=== PATIENT | female | born 1990 | race Two or more races ===

== ENCOUNTER 2025-04-15 22:31 | Emergency (ER) | payer MEDICAID, OTHER ==
[~2025-04-15] VITALS: Ht 154.9 cm; Wt 62.5 kg
[2025-04-15] MEDS ORDERED: AUG875T PO (23:32)
[2025-04-15] MEDS ORDERED: IBUP-1456 PO (23:32)
--- NOTE | 2025-04-15 23:34 | ED.PDOC ---
Eye-HPI HPI Comments 34-YEAR-OLD FEMALE PRESENTS TO THE ED WITH DENTAL PAIN.. PATIENT STATES SHE HAS NOT A CRACKED TOOTH BOTTOM LEFT MOLAR. HAS NOT APPOINTMENT WITH THE DENTIST IN 1 MONTH. SHE NOTES PAIN 10/10 THROBBING IN NATURE. DENIES FEVER, CHILLS, NAUSEA, VOMITING, DIFFICULTY BREATHING, OR DIFFICULTY SWALLOWING. 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: No Pertinent MANAGER MATERIALS MANAGEMENT History Social History Smoker: Non-Smoker Alcohol: Denies ETOH Use Drugs: Denies Drug Use Constitutional: denies: chills, diaphoresis, fatigue, fever, malaise, sweats, weakness, others EENTM: reports: others (DENTAL PAIN ); denies: blurred vision, double vision, ear bleeding, ear discharge, ear drainage, ear pain, ear ringing, eye pain, eye redness, hearing loss, mouth pain, mouth swelling, nasal discharge, nose bleeding, nose congestion, nose pain, photophobia, tearing, throat pain, throat swelling, voice changes Respiratory: denies: cough, hemoptysis, orthopnea, SOB at rest, shortness of breath, SOB with excertion, stridor, wheezing, others Cardiovascular: denies: chest pain, dizzy spells, diaphoresis, Dyspnea on exertion, edema, irregular heart beat, left arm pain, lightheadedness, palpitations, PND, syncope, others Gastrointestinal: denies: abdomen distended, abdominal pain, blood streaked bowels, constipated, diarrhea, dysphagia, difficulty swallowing, hematemesis, me katelynn, nausea, poor appetite, poor fluid intake, rectal bleeding, rectal pain, vomiting, others Genitourinary: denies: abnormal vagina bleeding, burning, dyspareunia, dysuria, flank pain, frequency, hematuria, incontinence, pain, , vagina discharge, urgency, others Neurological: denies: dizziness, fainting, headache, left sided numbness, left sided weakness, numbness, paresthesia, pre-existing deficit, right sided numbness, right sided weakness, seizure, speech problems, tingling, tremors, weakness, others Musculoskeletal: denies: back pain, gout, joint pain, joint swelling, muscle pain, muscle stiffness, neck pain, others Integumetry: denies: bruises, change in color, change in hair/nails, dryness, laceration, lesions, lumps, rash, wounds, others Allergic/Immunocompromised: denies: Difficulty Healing, Frequent Infections, Hives, Itching, others Hematologic/Lymphatic: denies: anemia, blood clots, easy bleeding, easy bruising, swollen glands, others Endocrine: denies: excessive hunger, excessive sweating, excessive thirst, excessive urination, flushing, intolerance to cold, intolerance to heat, unexplained weight gain, unexplained weight loss, others Psychiatric: denies: anxiety, bipolar disorder, depression, hopeless, panic disorder, schizophrenia, sleepless, suicidal, others Physical Exam General Appearance: No Apparent Distress, Normal HEENT: Pharynx Normal, TMs Normal Neck: Full Range of Motion, Non-Tender Respiratory: Lungs Clear, No Respiratory Distress, Normal Breath Sounds Cardiovascular: No Murmur, Normal Peripheral Pulses, Regular Rate/Rhythm Breast Exam: Deferred Gastrointestinal: Non Tender, Soft Genitalia: Deferred Pelvic: Deferred Rectal: Deferred Extremities: Normal range of motion Musculoskeletal : Apperance: Normal Neurologic: Alert, recorder helper seismograph II-XII nml as Tested, No Motor Deficits, Normal Affect, Normal Mood, No Sensory Deficits Cerebellar Function: Normal Reflexes: Normal Skin: Dry, Normal Color, Warm Lymphatic: No Adenopathy Was a procedure done? Was a procedure done?: No EENT DIFF Eye: N/A Sore Throat: Aamir's Angina X-Ray, Labs, Meds, VS Comment PATIENT GIVEN ROCEPHIN 1 G AND TORADOL 60 MG AND NORCO 5 MG P.O. PATIENT HAS NOT APPOINTMENT IN 1 MONTH ADVISED HER TO CALL IN SEE IF SHE CAN GET A SOONER FOLLOW UP. SCRIPT TRIAL OF AUGMENTIN AND IBUPROFEN. TAKE MEDICATIONS PRESCRIBED SIDE EFFECTS DISCUSSED. ER RETURN PRECAUTIONS GIVEN PATIENT INDICATED UNDERSTANDING AGREES WITH DISCHARGE PLAN OF CARE. Time of 1ST Reevaluation: 23:22 Reevaluation 1ST: Unchanged Time of 2ND Reevaluation: 23:33 Reevaluation 2ND: Improved Patient Education/Counseling: Diagnosis, Treatment, Prognosis, Need For Follow Up Family Education/Counseling: Diagnosis, Treatment, Prognosis, Need For Follow Up Departure 1 Departure Time of Disposition: 23:25 Impression: Primary Impression: Dental infection Disposition: HOME / SELF CARE / HOMELESS Condition: Stable e-Prescriptions Ibuprofen (Ibuprofen) 800 Mg Tab 800 MG PO Q8HP PRN for 5 Days, #15 TAB Prov: PRIMO DAVIDSON 04/15/25 Amoxicillin & Pot Clavulanate (AUGMENTIN TABLET) 875 Mg Tb 875 MG PO BID for 7 Days, #14 TAB 6 Refills Prov: PRIMO DAVIDSON 04/15/25 Discharged With: Relative (Mother) Critical Care Note Critical Care Time?: No Stability Stability form required: No PRIMO DAVIDSON Apr 15, 2025 23:34
[2025-04-15 23:40] VITALS: BP 124/82; PULSE 91; RESP 16; TEMP 97.5; O2SAT 97
[2025-04-15] MEDS: KETOROLAC TROMETH 60MG/2ML VIAL IM ONE (23:48)
[2025-04-15] MEDS: HYDROcodone-ACET 5/325MG TAB PO ONE (23:48)
[2025-04-15] MEDS: cefTRIAXone SOD 1,000 MG VL IM ONE (23:48)
== END 2025-04-15 23:57 | disposition home or self-care (01) ==
LOC: ER 22:31
DX: K04.7 Periapical abscess without sinus (principal)

== ENCOUNTER 2025-04-22 21:08 | Emergency (ER) | payer MEDICAID ==
[~2025-04-22] VITALS: Ht 154.9 cm; Wt 64.2 kg
[~2025-04-22 21:08] MED LIST: AUG875T PO
[2025-04-22 21:25] VITALS: BP 131/97; RESP 16; TEMP 98.1; O2SAT 100
[2025-04-22 21:27] VITALS: PULSE 85
[2025-04-22] MEDS ORDERED: BENZOCAINE (DENTAL) 20 % SPRAY 60ML MT ONE (21:30)
[2025-04-22] MEDS ORDERED: OXYCODONE W/ ACETAMINOPHEN 5/325MG TABLET PO ONE (21:30)
[2025-04-22] MEDS ORDERED: KETOROLAC TROMETH 60MG/2ML VIAL IM ONE (21:30)
[2025-04-22] MEDS ORDERED: cefTRIAXone SOD 1,000 MG VL IM ONE (21:30)
--- NOTE | 2025-04-22 22:02 | ED.PDOC ---
Eye-HPI HPI Comments C/C: LOWER, LEFT SIDE OF MOUTH TOOTH PAIN AND ABSCESS. PATIENT STATES THAT SHE IS ANTIBIOTICS. ALL VSS. PATIENT STATES THAT SHE IS ALSO HAVING ALL OVER BODY PAIN AND WORRIED ABOUT THE INFECTION GOING INTO HER BLOOD STREAM Chief Complaint: Tooth Pain Time Seen by MD: 21:14 Reviewed Notes: Nurses Notes, Hot Walker Notes, Medications, Allergies Allergies: Coded Allergies: NO KNOWN ALLERGIES (Unverified , 04/15/25) Home Meds Active Scripts Amoxicillin & Pot Clavulanate (AUGMENTIN TABLET) 875 Mg Tb, 875 MG PO BID for 7 Days, #14 TAB 6 Refills Prov:PRIMO DAVIDSON KIRSTIE 04/15/25 Discontinued Scripts Ibuprofen (Ibuprofen) 800 Mg Tab, 800 MG PO Q8HP PRN for 5 Days, #15 TAB Prov:PRIMO DAVIDSON 04/15/25 Information Source: Patient Mode of Arrival: Ambulatory Past Medical History PAST MEDICAL HISTORY: Denies Surgical History: Denies all surgeries 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: No 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 Social History Smoker: Non-Smoker Alcohol: Denies ETOH Use Drugs: Denies Drug Use Constitutional: denies: chills, diaphoresis, fatigue, fever, malaise, sweats, weakness, others EENTM: reports: others (Dental pain); denies: blurred vision, double vision, ear bleeding, ear discharge, ear drainage, ear pain, ear ringing, eye pain, eye redness, hearing loss, mouth pain, mouth swelling, nasal discharge, nose bleeding, nose congestion, nose pain, photophobia, tearing, throat pain, throat swelling, voice changes Respiratory: denies: cough, hemoptysis, orthopnea, SOB at rest, shortness of breath, SOB with excertion, stridor, wheezing, others Cardiovascular: denies: chest pain, dizzy spells, diaphoresis, Dyspnea on exertion, edema, irregular heart beat, left arm pain, lightheadedness, palpitations, PND, syncope, others Gastrointestinal: denies: abdomen distended, abdominal pain, blood streaked bowels, constipated, diarrhea, dysphagia, difficulty swallowing, hematemesis, melena, nausea, poor appetite, poor fluid intake, rectal bleeding, rectal pain, vomiting, others Genitourinary: denies: abnormal vagina bleeding, burning, dyspareunia, dysuria, flank pain, frequency, hematuria, incontinence, pain, , vagina discharge, urgency, others Neurological: denies: dizziness, fainting, headache, left sided numbness, left sided weakness, numbness, paresthesia, pre-existing deficit, right sided numbness, right sided weakness, seizure, speech problems, tingling, tremors, weakness, others Musculoskeletal: denies: back pain, gout, joint pain, joint swelling, muscle pain, muscle stiffness, neck pain, others Integumetry: denies: bruises, change in color, change in hair/nails, dryness, laceration, lesions, lumps, rash, wounds, others Allergic/Immunocompromised: denies: Difficulty Healing, Frequent Infections, Hives, Itching, others Hematologic/Lymphatic: denies: anemia, blood clots, easy bleeding, easy bruising, swollen glands, others Endocrine: denies: excessive hunger, excessive sweating, excessive thirst, excessive urination, flushing, intolerance to cold, intolerance to heat, unexplained weight gain, unexplained weight loss, others Psychiatric: denies: anxiety, bipolar disorder, depression, hopeless, panic disorder, schizophrenia, sleepless, suicidal, others Physical Exam General Appearance: No Apparent Distress, Normal HEENT: Pharynx Normal, TMs Normal, Other (Back left lower molar cracked with moderate decay no noted obvious external abscess no noted drainage or erythema) Neck: Full Range of Motion, Normal Respiratory: Lungs Clear, No Respiratory Distress, Normal Breath Sounds Cardiovascular: No Murmur, Normal Peripheral Pulses, Regular Rate/Rhythm Breast Exam: Deferred Gastrointestinal: Non Tender, Soft Genitalia: Deferred Pelvic: Deferred Rectal: Deferred Extremities: No calf tenderness, Normal inspection, Normal range of motion Musculoskeletal : Apperance: Normal Neurologic: Alert, No Motor Deficits, Normal Affect, Normal Mood, No Sensory Deficits Cerebellar Function: Normal Reflexes: Normal Skin: Dry, Normal Color, Warm Lymphatic: No Adenopathy Was a procedure done? Was a procedure done?: No EENT DIFF Eye: N/A Ear: N/A Nose: N/A Mouth: N/A Sore Throat: Aamir's Angina, Peritonsillar Abscess, Peritonsillar Cellulitis, Streptococcal, Viral Pharyngitis X-Ray, Labs, Meds, VS Vital Signs Date Time Temp Pulse Resp B/P (MAP) Pulse Ox O2 Delivery O2 Flow Rate FiO2 04/22/25 21:25 98.1 95 16 131/97 (108) 100 98.1 X-Ray, Labs, Meds, VS Comment Patient given Rocephin 1 g IM, Toradol 1 g IM and Percocet 5 mg p.o.. Reports improvement in pain requesting discharge at this time. Patient also given can of Hurricaine spray advised to use 2-3 times daily as needed directly on the tooth. Advised to rest increase p.o. fluids with electrolytes. Follow up with her dental appointment. Continue the current Augmentin antibiotics yet prescribed ER return precautions given patient indicates understanding and agrees with discharge plan of care. Time of 1ST Reevaluation: 21:14 Reevaluation 1ST: Unchanged Time of 2ND Reevaluation: 21:59 Reevaluation 2ND: Improved Patient Education/Counseling: Diagnosis, Treatment, Prognosis, Need For Follow Up Family Education/Counseling: No Family Present SEPSIS Sepsis Screen Date sepsis recognized/suspect: Apr 22, 2025 Time Sepsis recognized/suspect: 2120 Recent Procedure: No On Antibiotic Therapy: No Respiratory Rate >20: No Heart Rate >90: Yes Temp<36 C (96.8 F) or >38.3 C: No SBP <90 or MAP <65 mmHG: No New Acute Mental Status Change: No Is the patient on CPAP, BIPAP,: No Physician Orders Electrocardigram (04/22/25 21:23) Vital Signs Date Time Temp Pulse Resp B/P (MAP) Pulse Ox O2 Delivery O2 Flow Rate FiO2 04/22/25 21:25 98.1 95 16 131/97 (108) 100 98.1 Departure 1 Departure Time of Disposition: 21:58 Impression: Primary Impression: Dental infection Disposition: 01 HOME / SELF CARE / HOMELESS Condition: Stable e-Prescriptions Indomethacin (Indomethacin) 50 Mg Cap 1 CAP PO TID PRN for 4 Days, #12 CAP Prov: PRIMO DAVIDSON 04/22/25 Discharged With: Significant Other Critical Care Note Critical Care Time?: No Stability Stability form required: PRIMO Echevarria Apr 22, 2025 22:02
[2025-04-22] MEDS ORDERED: INDO50CA82 PO (22:10)
--- NOTE | 2025-04-24 10:26 | ECG ---
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
== END 2025-04-23 02:28 | disposition home or self-care (01) ==
LOC: ER 21:08
DX: K04.7 Periapical abscess without sinus (principal); K02.9 Dental caries, unspecified; Z79.899 Other long term (current) drug therapy; Z88.1 Allergy status to other antibiotic agents
CPT/HCPCS: 93005

== ENCOUNTER 2025-04-27 18:38 | Emergency (ER) | payer MEDICAID ==
[~2025-04-27] VITALS: Ht 152.4 cm; Wt 65.8 kg
[~2025-04-27 18:38] MED LIST changes: +INDO50CA82 PO
[2025-04-27] MEDS: cefTRIAXone SOD 1,000 MG VL IM ONE (19:00)
[2025-04-27] MEDS ORDERED: CLIN1CAP70 PO (19:18)
--- NOTE | 2025-04-27 19:20 | ED.PDOC ---
Eye-HPI HPI Comments 34-year-old female patient presents an ED chief complaint left lower jaw dental pain in abscess. Patient reports she was seen here two weeks ago was prescribed Augmentin and 800 mg of Motrin. She reports pain is symptoms continue she states the medication did not help her. She does not know has not appointment on May 09 with fentanyl she tried to get in sooner but they have no openings. She describes pain is throbbing to left lower jaw 10/10 on pain scale radiating worse with cold and hot. Denies difficulty breathing, shortness a breath, chest pain, difficulty swallowing with throat swelling. Chief Complaint: Tooth Pain Time Seen by MD: 18:41 Reviewed Notes: Nurses Notes, Medications, Allergies Allergies: Coded Allergies: NO KNOWN ALLERGIES (Unverified , 04/15/25) Home Meds Active Scripts Clindamycin Hcl (Clindamycin Hcl) 300 Mg Cap, 300 MG PO QID for 7 Days, #28 CAP Prov:STUART,PRIMO [facility] 04/27/25 Discontinued Scripts Indomethacin (Indomethacin) 50 Mg Cap, 1 CAP PO TID PRN for 4 Days, #12 CAP Prov:PRIMO DAVIDSON [facility] 04/22/25 Amoxicillin & Pot Clavulanate (AUGMENTIN TABLET) 875 Mg Tb, 875 MG PO BID for 7 Days, #14 TAB 6 Refills Prov:MIRA DAVIDSONMohan CANTRELLP 04/15/25 Ibuprofen (Ibuprofen) 800 Mg Tab, 800 MG PO Q8HP PRN for 5 Days, #15 TAB Prov:MIRA DAVIDSONMohan CANTRELLP 04/15/25 Information Source: Patient Past Medical History PAST MEDICAL HISTORY: Denies Surgical History: Denies all surgeries 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: No 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 Social History Smoker: Non-Smoker Alcohol: Denies ETOH Use Drugs: Denies Drug Use Constitutional: denies: chills, diaphoresis, fatigue, fever, malaise, sweats, weakness, others EENTM: reports: others (Dental pain); denies: blurred vision, double vision, ear bleeding, ear discharge, ear drainage, ear pain, ear ringing, eye pain, eye redness, hearing loss, mouth pain, mouth swelling, nasal discharge, nose bleeding, nose congestion, nose pain, photophobia, tearing, throat pain, throat swelling, voice changes Respiratory: denies: cough, hemoptysis, orthopnea, SOB at rest, shortness of breath, SOB with excertion, stridor, wheezing, others Cardiovascular: denies: chest pain, dizzy spells, diaphoresis, Dyspnea on exertion, edema, irregular heart beat, left arm pain, lightheadedness, palpitations, PND, syncope, others Gastrointestinal: denies: abdomen distended, abdominal pain, blood streaked bowels, constipated, diarrhea, dysphagia, difficulty swallowing, hematemesis, melena, nausea, poor appetite, poor fluid intake, rectal bleeding, rectal pain, vomiting, others Genitourinary: denies: abnormal vagina bleeding, burning, dyspareunia, dysuria, flank pain, frequency, hematuria, incontinence, pain, , vagina discharge, urgency, others Neurological: denies: dizziness, fainting, headache, left sided numbness, left sided weakness, numbness, paresthesia, pre-existing deficit, right sided numbness, right sided weakness, seizure, speech problems, tingling, tremors, weakness, others Musculoskeletal: denies: back pain, gout, joint pain, joint swelling, muscle pain, muscle stiffness, neck pain, others Integumetry: denies: bruises, change in color, change in hair/nails, dryness, laceration, lesions, lumps, rash, wounds, others Allergic/Immunocompromised: denies: Difficulty Healing, Frequent Infections, Hives, Itching, others Hematologic/Lymphatic: denies: anemia, blood clots, easy bleeding, easy bruising, swollen glands, others Endocrine: denies: excessive hunger, excessive sweating, excessive thirst, excessive urination, flushing, intolerance to cold, intolerance to heat, unexplained weight gain, unexplained weight loss, others Psychiatric: denies: anxiety, bipolar disorder, depression, hopeless, panic disorder, schizophrenia, sleepless, suicidal, others Physical Exam General Appearance: No Apparent Distress, Normal HEENT: Pharynx Normal, TMs Normal, Other (Moderate decay left lower jaw back molar with no obvious signs of abscess negative Aamir's. ) Neck: Full Range of Motion, Non-Tender Respiratory: Lungs Clear, No Respiratory Distress, Normal Breath Sounds Cardiovascular: No Murmur, Normal Peripheral Pulses, Regular Rate/Rhythm Breast Exam: Deferred Gastrointestinal: Non Tender, Soft Genitalia: Deferred Pelvic: Deferred Rectal: Deferred Extremities: Normal range of motion Musculoskeletal : Apperance: Normal Neurologic: Alert, No Motor Deficits, Normal Affect, Normal Mood, No Sensory Deficits Cerebellar Function: Normal Reflexes: Normal Skin: Dry, Normal Color, Warm Lymphatic: No Adenopathy Was a procedure done? Was a procedure done?: No EENT DIFF Eye: N/A Ear: N/A Nose: N/A Mouth: N/A Sore Throat: Aamir's Angina X-Ray, Labs, Meds, VS Comment Patient given Percocet 10 mg p.o., Rocephin 1 g IM, in hurricane spray she repor ts improvement pain symptoms for questions discharge at this time. Advised to stop Augmentin states it is not working script clindamycin x7 days advised to take medications as prescribed side effects of the to discuss the advice to take daily yogurt or probiotic while on medication. Pause to follow up with her dental appointment as scheduled for resolution. Advised on ER return precautions patient indicates understanding and agrees with discharge plan of care. Time of 1ST Reevaluation: 19:00 Reevaluation 1ST: Unchanged Time of 2ND Reevaluation: 19:24 Reevaluation 2ND: Improved Patient Education/Counseling: Diagnosis, Treatment, Prognosis, Need For Follow Up Family Education/Counseling: No Family Present Departure 1 Departure Time of Disposition: 19:25 Impression: Primary Impression: Dental infection Disposition: HOME / SELF CARE / HOMELESS Condition: Stable e-Prescriptions Clindamycin Hcl (Clindamycin Hcl) 300 Mg Cap 300 MG PO QID for 7 Days, #28 CAP Prov: PRIMO DAVIDSON 04/27/25 Discharged With: Self Critical Care Note Critical Care Time?: No Stability Stability form required: PRIMO Echevarria Apr 27, 2025 19:20
[2025-04-27] MEDS ORDERED: GABA-1308 PO (19:59)
[2025-04-27] MEDS: OXYCODONE W/ ACETAMINOPHEN 5/325MG TABLET PO ONE (20:00)
[2025-04-27] MEDS: BENZOCAINE (DENTAL) 20 % SPRAY 60ML MT ONE (20:00)
[2025-04-27 20:23] VITALS: BP 129/78; PULSE 88; RESP 18; TEMP 98.9; O2SAT 98
== END 2025-04-27 20:15 | disposition home or self-care (01) ==
LOC: ER 18:39
DX: K04.7 Periapical abscess without sinus (principal)

== ENCOUNTER 2025-06-25 01:16 | Emergency (ER) | payer MEDICAID ==
[~2025-06-25] VITALS: Ht 154.9 cm; Wt 66.5 kg
[2025-06-25 01:18] VITALS: BP 142/75; RESP 16; TEMP 97.7; O2SAT 95
--- NOTE | 2025-06-25 01:53 | ED.PDOC ---
HPI Comments 34-year-old female came to ER for chest pains. Patient has a history of hypertension and is a cigarette smoker. States about 2 hours prior to arrival, she was at work when she developed left sided chest pains, pressure, non radiating. She got home, still having intermittent episodes of chest pains, in noted that her blood pressure is elevated SBP 140-160. Symptoms persisted prompting checkup with the ER. 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 History Family History Family History: Reviewed,noncontributory to illness Social History Smoker: Cigarettes Alcohol: Denies ETOH Use Drugs: Denies Drug Use Lives In: Home Constitutional: denies: chills, diaphoresis, fatigue, fever, malaise, sweats, weakness, others EENTM: denies: blurred vision, double vision, ear bleeding, ear discharge, ear drainage, ear pain, ear ringing, eye pain, eye redness, hearing loss, mouth pain, mouth swelling, nasal discharge, nose bleeding, nose congestion, nose pain, photophobia, tearing, throat pain, throat swelling, voice changes, others Respiratory: denies: cough, hemoptysis, orthopnea, SOB at rest, shortness of breath, SOB with excertion, stridor, wheezing, others Cardiovascular: reports: chest pain; denies: dizzy spells, diaphoresis, Dyspnea on exertion, edema, irregular heart beat, left arm pain, lightheadedness, palpitations, PND, syncope, others Gastrointestinal: denies: abdomen distended, abdominal pain, blood streaked bowels, constipated, diarrhea, dysphagia, difficulty swallowing, hematemesis, melena, nausea, poor appetite, poor fluid intake, rectal bleeding, rectal pain, vomiting, others Genitourinary: reports: dysuria; denies: abnormal vagina bleeding, burning, dyspareunia, flank pain, frequency, hematuria, incontinence, pain, , vagina discharge, urgency, others Neurological: denies: dizziness, fainting, headache, left sided numbness, left sided weakness, numbness, paresthesia, pre-existing deficit, right sided numbness, right sided weakness, seizure, speech problems, tingling, tremors, weakness, others Musculoskeletal: denies: back pain, gout, joint pain, joint swelling, muscle pain, muscle stiffness, neck pain, others Integumetry: denies: bruises, change in color, change in hair/nails, dryness, laceration, lesions, lumps, rash, wounds, others Allergic/Immunocompromised: denies: Difficulty Healing, Frequent Infections, Hives, Itching, others Hematologic/Lymphatic: denies: anemia, blood clots, easy bleeding, easy bruising, swollen glands, others Endocrine: denies: excessive hunger, excessive sweating, excessive thirst, excessive urination, flushing, intolerance to cold, intolerance to heat, unexplained weight gain, unexplained weight loss, others Psychiatric: denies: anxiety, bipolar disorder, depression, hopeless, panic disorder, schizophrenia, sleepless, suicidal, others Physical Exam General Appearance: No Apparent Distress, Normal HEENT: Normal ENT Inspection, Pharynx Normal, TMs Normal Neck: Full Range of Motion, Non-Tender, Normal, Normal Inspection Respiratory: Chest Non-Tender, Lungs Clear, No Accessory Muscle Use, No Respiratory Distress, Normal Breath Sounds Cardiovascular: No Edema, No JVD, No Murmur, No Gallop, Normal Peripheral Pulses, Regular Rate/Rhythm Breast Exam: Deferred Gastrointestinal: No Organomegaly, Non Tender, No Pulsatile Mass, Normal Bowel Sounds, Soft Genitalia: Deferred Pelvic: Deferred Rectal: Deferred Extremities: No calf tenderness, Normal capillary refill, Normal inspection, Normal range of motion, Non-tender, No pedal edema Musculoskeletal : Apperance: Normal Neurologic: 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 Was a procedure done?: No CP Differential Dx Differential Diagnosis: Angina, Anxiety / Panic Attack Differential Diagnosis: Angina, Chest Wall Pain, Costochondritis, Esophageal reflux/spasm, Gastritis, Myocardial Infarction, Pneumonia X-Ray, Labs, Meds, VS Vital Signs Date Time Temp Pulse Resp B/P (MAP) Pulse Ox O2 Delivery O2 Flow Rate FiO2 06/25/25 02:34 92 06/25/25 01:27 88 06/25/25 01:18 97.7 91 16 142/75 95 97.7 Lab Test 06/25/25 02:18 06/25/25 01:30 Range/Units Troponin I High Sensitivity < 3 L < 3 L </=34 ng/L White Blood Count 7.2 4.4-10.8 10^3/uL Red Blood Count 4.00 4.0-5.20 10^6/uL Hemoglobin 12.6 12.2-16.2 g/dL Hematocrit 35.7 L 36.0-46.0 % Mean Corpuscular Volume 89.3 80.0-100.0 fL Mean Corpuscular Hemoglobin 31.6 28.0-32.0 pg Mean Corpuscular Hemoglobin Concent 35.4 32.0-36.0 g/dL Red Cell Distribution Width 12.2 11.8-14.3 % Platelet Count 348 140-450 10^3/uL Mean Platelet Volume 8.1 6.9-10.8 fL Neutrophils (%) (Auto) 52.4 37.0-80.0 % Lymphocytes (%) (Auto) 35.9 10.0-50.0 % Monocytes (%) (Auto) 8.0 0.0-12.0 % Eosinophils (%) (Auto) 3.3 0.0-7.0 % Basophils (%) (Auto) 0.4 0.0-2.0 % Neutrophils # (Auto) 3.8 1.6-8.6 10 ^3/uL Lymphocytes # (Auto) 2.6 0.4-5.4 10 ^3/uL Monocytes # (Auto) 0.6 0-1.3 10 ^3/uL Eosinophils # (Auto) 0.2 0-0.8 10 ^3/uL Basophils # (Auto) 0 0-0.2 10 ^3/uL Nucleated Red Blood Cells 0.0 % Sodium Level 142 136-145 mmol/L Potassium Level 3.6 3.5-5.1 mmol/L Chloride Level 104 98-107 mmol/L Carbon Dioxide Level 30 20-31 mmol/L Anion Gap 8 5-15 Blood Urea Nitrogen 14 9-23 mg/dL Creatinine 0.72 0.550-1.02 mg/dL Glomerular Filtration Rate Calc 111 >90 mL/min BUN/Creatinine Ratio 19.4 10.0-20.0 Serum Glucose 92 74-106 mg/dL Calcium Level 9.1 8.7-10.4 mg/dL CHEST RADIOGRAPH Indication: cp Technique: 1 view Comparison: None FINDINGS: Lines and Tubes: None Lungs: No focal consolidation. Pleura: No effusion or pneumothorax. Cardiomediastinal contours: Unremarkable. Other: No acute osseous abnormality. IMPRESSION: 1. No acute cardiopulmonary abnormality. Time of 1ST Reevaluation: 01:48 Reevaluation 1ST: Unchanged Patient Education/Counseling: Diagnosis, Treatment Family Education/Counseling: No Family Present Comments Patient presents with chest pain but she has no cardiac risk factors. Her cardiac workup is unremarkable. Heart score is 1. She also reports she has been having dysuria. I will go and start her on Keflex based on her symptoms. She did submit urine and I did order the UA however the urine set for quite a time without being sent to lab therefore I will go and treat her empirically. SEPSIS Sepsis Screen Date sepsis recognized/suspect: Jun 25, 2025 Time Sepsis recognized/suspect: 0124 Recent Procedure: No On Antibiotic Therapy: No Respiratory Rate >20: No Heart Rate >90: No Temp<36 C (96.8 F) or >38.3 C: No SBP <90 or MAP <65 mmHG: No New Acute Mental Status Change: No Is the patient on CPAP, BIPAP,: No Physician Orders Electrocardigram (06/25/25 01:33) Electrocardigram (06/25/25 02:33) Electrocardigram (06/25/25 04:33) Chest Xray 1 View (06/25/25 01:46) Drug Screen (06/25/25 01:46) Test, Urine (06/25/25 01:46) Urinalysis (06/25/25 01:46) Troponin-I Hs (06/25/25 04:46) Urinalysis (06/25/25 02:38) Vital Signs Date Time Temp Pulse Resp B/P (MAP) Pulse Ox O2 Delivery O2 Flow Rate FiO2 06/25/25 02:34 92 06/25/25 01:27 88 06/25/25 01:18 97.7 91 16 142/75 95 97.7 Laboratory Tests Test 06/25/25 01:30 White Blood Count 7.2 10^3/uL (4.4-10.8) Departure 1 Departure Time of Disposition: 03:46 Impression: Primary Impression: Chest pain Qualified Codes: R07.9 - Chest pain, unspecified Additional Impression: Dysuria Disposition: HOME / SELF CARE / HOMELESS Condition: Good e-Prescriptions Cephalexin Monohydrate (Cephalexin) 500 Mg Cap 500 MG PO Q6HR for 3 Days, #12 MG Prov: JARED BERUMEN MD 06/25/25 Discharged With: Self Critical Care Note Critical Care Time?: No Stability Stability form required: No Heart Score Heart Score: Heart Score Response (Comments) Value History Slightly Suspicious 0 EKG Normal 0 Age <45 0 Risk Factors 1 or 2 risk factors 1 Troponin Normal limit 0 Total 1 I personally scribed for JARED BERUMEN MD ([email or web address]) on 06/25/25 at 01:53. Electronically submitted by David Mckeon ([email or web address]). I personally scribed for JARED BERUMEN MD ([email or web address]) on 06/25/25 at 03:12. Electronically submitted by David Mckeon ([email or web address]). AJRED BERUMEN MD Jun 25, 2025 01:53
[2025-06-25 02:02] LABS: Hematocrit 35.7 % (36.0-46.0); Hemoglobin 12.6 g/dL (12.2-16.2); Mean Corpuscular Hemoglobin 31.6 pg (28.0-32.0); Mean Corpuscular Volume 89.3 fL (80.0-100.0); Nucleated Red Blood Cells % 0.0 %
[2025-06-25 02:15] LABS: Chloride 104 mmol/L (98-107); Potassium 3.6 mmol/L (3.5-5.1); Sodium 142 mmol/L (136-145)
[2025-06-25 02:16] LABS: Anion Gap 8 (5-15); Calcium 9.1 mg/dL (8.7-10.4); Carbon Dioxide 30 mmol/L (20-31)
[2025-06-25 02:21] LABS: BUN/Creatinine Ratio 19.4 (10.0-20.0); Blood Urea Nitrogen 14 mg/dL (9-23); Glucose 92 mg/dL (74-106)
--- NOTE | 2025-06-25 02:21 | DVH ---
CHEST RADIOGRAPH Indication: cp Technique: 1 view Comparison: None FINDINGS: Lines and Tubes: None Lungs: No focal consolidation. Pleura: No effusion or pneumothorax. Cardiomediastinal contours: Unremarkable. Other: No acute osseous abnormality. IMPRESSION: 1. No acute cardiopulmonary abnormality.
[2025-06-25 02:34] VITALS: PULSE 92
[2025-06-25] MEDS ORDERED: CEPH500C PO (03:46)
[2025-06-25 06:09] LABS: Cannabinoid Screen, Urine Neg (NEGATIVE)
[2025-06-25 06:13] LABS: Amphetamine Screen, Urine Neg (NEGATIVE); Barbiturate Scree,Urine Neg (NEGATIVE); Benzodiazephine Screen, Urine Neg (NEGATIVE); Cocaine Screen, Urine Neg (NEGATIVE); Opiate Scree,Urine Pos (NEGATIVE); Phencyclidine Screen, Urine Neg (NEGATIVE); Urine Protein, UAD TRACE (Negative)
--- NOTE | 2025-06-26 07:41 | ECG ---
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
--- NOTE | 2025-06-28 10:43 | ECG ---
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
== END 2025-06-25 05:00 | disposition home or self-care (01) ==
LOC: ER 01:16
DX: R07.89 Other chest pain (principal); R30.0 Dysuria; I10 Essential (primary) hypertension; F17.210 Nicotine dependence, cigarettes, uncomplicated; Z79.899 Other long term (current) drug therapy
CPT/HCPCS: 36415; 71045; 80048; 80307; 81001; 81025; 84484; 85025; 93005